=== PATIENT | female | born 1945 | race Caucasian/White ===

== ENCOUNTER → 2017-01-28 | Outpatient (CLI) | payer MEDICARE, BC | LOC: WC.BC 08:00 | DX: Z12.31 Encounter for screening mammogram for malignant neoplasm of breast (principal) | CPT/HCPCS: 77063; G0202 ==

== ENCOUNTER 2017-02-27 06:46 | Day surgery (SDC) | payer MEDICARE, BC ==
[~2017-02-27] VITALS: Ht 172.7 cm; Wt 75.7 kg
[~2017-02-27 06:46] MED LIST: AMLO1CAP11 PO; LOVA40TA2 PO; MULT-933 PO
--- OUTSIDE RECORDS SUMMARY | 2017-02-27 06:50 | XMS REPORT | Continuity of Care Document ---
Author Author [facility] Organization [facility] Address Unknown Phone Unavailable Allergies Medications Problems Procedures Results Encounters ACCT No. Visit Date/Time Discharge Status Pt. Type Provider Facility Loc./Unit Complaint [id number] 01/10/2014 08:02:00 01/10/2014 23 :59:59 CLS Outpatient
--- OUTSIDE RECORDS SUMMARY | 2017-02-27 06:51 | XMS REPORT | Referral Summary ---
Author Author [facility] Organization [facility] Address Unknown Phone Unavailable Care Team Providers Care Pharmacy Benefits Coordinator Name Role Phone Lynne Bills Primary Care Physician [phone] Encounter VC Date(s): 07/31/16 - 07/31/16 [facility] [address] [place] [id number]- Discharge Disposition: 01-Home or Self Care Attending Physician: Dean Bills MD Admitting Physician: Dean Bills MD Vital Signs No data available for this section Problem List Condition Effective Dates Status Health Status Informant Benign essential Active hypertension (disorder)(Confirmed ) Cataracts(Confirmed) Active Hyperlipidemia(Confi Active rmed) Hypertension(Confirm Active ed) Pure Active hypercholesterolemia (disorder)(Confirmed ) Allergies, Adverse Reactions, Alerts Substance Reaction Severity Status codeine EMISIS Active Medications amLODIPine-benazepril 5 mg-10 mg oral capsule See Instructions, TAKE ONE CAPSULE BY MOUTH ONCE DAILY, # 30 caps, 5 Refill(s), eRx: [id number], TAKE ONE CAPSULE BY MOUTH ONCE DAILY Start Date: 02/07/16 Status: Ordered aspirin 81 mg oral tablet 1 tabs, Oral, Daily, 0 Refill(s) Start Date: 07/12/14 Status: Ordered Colace 200 mg, Oral, Daily, 0 Refill(s) Start Date: 02/14/16 Status: Ordered lovastatin 40 mg oral tablet 40 mg 1 tabs, Oral, Daily, # 90 tabs, 4 Refill(s), Pharmacy: [facility], 1 tabs Oral Daily Start Date: 08/24/15 Status: Ordered meloxicam 7.5 mg oral tablet 7.5 mg 1 tabs, Oral, BID, Pain, # 60 tabs, 0 Refill(s), Pharmacy: [facility], 1 tabs Oral BID,PRN:Pain Start Date: 07/12/15 Status: Ordered Vitamin C 500 mg oral tablet 1 tabs, Oral, Daily, 0 Refill(s) Start Date: 07/12/14 Status: Ordered vitamin E 400 intl units oral capsule 1 caps, Oral, Daily, 0 Refill(s) Start Date: 07/12/14 Status: Ordered Results No data available for this section Immunizations Vaccine Date Refusal Reason influenza virus vaccine, inactivated 07/31/16 influenza virus vaccine, inactivated1 08/03/14 influenza virus vaccine, live 07/09/13 influenza virus vaccine, live 07/07/12 pneumococcal 13-valent conjugate vaccine2 07/12/15 pneumococcal 23-polyvalent vaccine 07/07/09 1Location History: See Scanned Document 2Early/Late Reason: Nursing Judgment Procedures Procedure Date Related Diagnosis Body Site Mammogram 01/26/13 Cataract Left 2008 Colonoscopy1 2007 Hysterectomy 1992 1Normal Social History Social History Type Response Smoking Status Never smoker Assessment and Plan No data available for this section
--- OUTSIDE RECORDS SUMMARY | 2017-02-27 06:51 | XMS REPORT | Referral Summary ---
Author Author [facility] Organization [facility] Address Unknown Phone Unavailable Care Team Providers Care Bracelet Maker Novelty Name Role Phone Lynne Bills Primary Care Physician [phone] Encounter Date(s): 02/14/16 - 02/14/16 [facility] [address] [place] [id number]- Discharge Diagnosis: Constipation Discharge Diagnosis: Pain in left hip Discharge Disposition: 01-Home or Self Care Attending Physician: Dean Bills MD Admitting Physician: Dean Bills MD Vital Signs Most recent to 1 oldest [Reference Range]: Temperature Tympanic 36.7 degC [36.6-38.1 degC] (02/14/16 9:57 AM) Peripheral Pulse 92 bpm Rate [60-100 bpm] (02/14/16 9:57 AM) Respiratory Rate 18 br/min [14-20 br/min] (02/14/16 9:57 AM) Blood Pressure 104/76 mmHg [90-140/60-90 mmHg] (02/14/16 9:57 AM) Problem List Condition Effective Dates Status Health Status Informant Benign essential Active hypertension (disorder)(Confirmed ) Cataracts(Confirmed) Active Hyperlipidemia(Confi Active rmed) Hypertension(Confirm Active ed) Pure Active hypercholesterolemia (disorder)(Confirmed ) Allergies, Adverse Reactions, Alerts Substance Reaction Severity Status codeine EMISIS Active Medications amLODIPine-benazepril 5 mg-10 mg oral capsule See Instructions, TAKE ONE CAPSULE BY MOUTH ONCE DAILY, # 30 caps, 5 Refill(s), [facility], TAKE ONE CAPSULE BY MOUTH ONCE DAILY Start Date: 02/07/16 Status: Ordered aspirin 81 mg oral tablet 1 tabs, Oral, Daily, 0 Refill(s) Start Date: 07/12/14 Status: Ordered Colace 200 mg, Oral, Daily, 0 Refill(s) Start Date: 02/14/16 Status: Ordered lovastatin 40 mg oral tablet 40 mg 1 tabs, Oral, Daily, # 90 tabs, 4 Refill(s), Pharmacy: [facility], 1 tabs Oral Daily Start Date: 08/24/15 Status: Ordered meloxicam 7.5 mg oral tablet 7.5 mg 1 tabs, Oral, BID, Pain, # 60 tabs, 0 Refill(s), Pharmacy: [facility], 1 tabs Oral BID,PRN:Pain Start Date: 07/12/15 Status: Ordered Vitamin C 500 mg oral tablet 1 tabs, Oral, Daily, 0 Refill(s) Start Date: 07/12/14 Status: Ordered vitamin E 400 intl units oral capsule 1 caps, Oral, Daily, 0 Refill(s) Start Date: 07/12/14 Status: Ordered Results No data available for this section Immunizations Vaccine Date Refusal Reason influenza virus vaccine, inactivated1 08/03/14 influenza virus vaccine, live 07/09/13 influenza virus vaccine, live 07/07/12 pneumococcal 13-valent conjugate vaccine2 07/12/15 pneumococcal 23-polyvalent vaccine 07/07/09 1Location History: See Scanned Document 2Early/Late Reason: Nursing Judgment Procedures Procedure Date Related Diagnosis Body Site Mammogram 01/26/13 Cataract Left 2007 Colonoscopy1 2007 Hysterectomy 1992 1Normal Social History Social History Type Response Smoking Status Never smoker Assessment and Plan Extracted from: Title: Office Visit Note Author: Dean Bills MD Date: 02/14/16 Assessment/Plan Constipation Continue stool softener no MiraLAX as needed. Continue to work on increasing fiber in the diet with fresh fruits patient goals and will drains. We discussed colonoscopy and considereddoing it next yearunless symptoms persist or worsen. Ordered: Office Visit Level 3 Est 90193 Pain in left hip Intermittent ibuprofen usage is fine. We will do an x- ray today. She really not interested in being any more aggressive with treatmentunless it becomes more bothersome. Ordered: Office Visit Level 3 Est 97778 XR Hip/Femur Left
--- OUTSIDE RECORDS SUMMARY | 2017-02-27 06:51 | XMS REPORT | Referral Summary ---
Author Author [facility] Organization [facility] Address Unknown Phone Unavailable Care Team Providers Care Silk Screen Operator Name Role Phone Lynne Bills Primary Care Physician [phone] Encounter VC Date(s): 05/17/15 - 05/17/15 [facility] [address] [place] [address]- Discharge Diagnosis: Left foot pain Discharge Diagnosis: Closed fracture of fifth metatarsal bone Discharge Disposition: 01-Home or Self Care Attending Physician: Dean Bills MD Admitting Physician: Dean Bills MD Vital Signs Most recent to 1 oldest [Reference Range]: Temperature Tympanic 36.8 degC [36.6-38.1 degC] (05/17/15 10:44 AM) Peripheral Pulse 76 bpm Rate [60-100 bpm] (05/17/15 10:44 AM) Respiratory Rate 16 br/min [14-20 br/min] (05/17/15 10:44 AM) Blood Pressure 110/70 mmHg [90-140/60-90 mmHg] (05/17/15 10:44 AM) Problem List Condition Effective Dates Status Health Status Informant Benign essential Active hypertension (disorder)(Confirmed ) Cataracts(Confirmed) Active Hyperlipidemia(Confi Active rmed) Hypertension(Confirm Active ed) Pure Active hypercholesterolemia (disorder)(Confirmed ) Allergies, Adverse Reactions, Alerts Substance Reaction Severity Status codeine EMISIS Active Medications amLODIPine-benazepril 5 mg-10 mg oral capsule 1 caps, Oral, Daily, # 90 caps, 4 Refill(s), Pharmacy: [facility] Start Date: 08/24/15 Status: Ordered aspirin 81 mg oral tablet 1 tabs, Oral, Daily, 0 Refill(s) Start Date: 07/12/14 Status: Ordered lovastatin 40 mg oral tablet 40 mg 1 tabs, Oral, Daily, # 90 tabs, 4 Refill(s), Pharmacy: [facility], 1 tabs Oral Daily Start Date: 08/24/15 Status: Ordered meloxicam 7.5 mg oral tablet 7.5 mg 1 tabs, Oral, BID, Pain, # 60 tabs, 0 Refill(s), Pharmacy: [facility], 1 tabs Oral BID,PRN:Pain [...] Visit Note Author: Dean Bills MD Date: 05/17/15 Assessment/Plan Closed fracture of fifth metatarsal bone My interpretation of the x-ray is shows good healing of the fracture. There is some arthritic change around this joint.. I recommended putting her on some meloxicam 50 mg daily for a couple weeks it's doing. She is to take this with food and not use any ibuprofen or Aleve while taking area it's not improving may consider orthopedic consultation. If the radiologist interprets the x-ray department Ordered: Office Visit Level 3 Est 52129 Left foot pain See above plan. Ordered: Office Visit Level 3 Est 91234 Orders: meloxicam, 15 mg 1 tabs, Oral, Daily, # 30 tabs, 0 Refill(s), Pharmacy : [facility], 1 tabs Oral Daily
--- OUTSIDE RECORDS SUMMARY | 2017-02-27 06:51 | XMS REPORT | Referral Summary ---
Author Author [facility] Organization [facility] Address Unknown Phone Unavailable Care Team Providers Care Websphere Consultant Name Role Phone Lynne Bills Primary Care Physician [phone] Encounter VC Date(s): 07/12/15 - 07/12/15 [facility] [address] [place] [id number] Discharge Diagnosis: Benign essential hypertension Discharge Diagnosis: Hyperlipidemia Discharge Diagnosis: Foot pain Discharge Disposition: 01-Home or Self Care Attending Physician: Dean Bills MD Admitting Physician: Dean Bills MD Vital Signs Most recent to 1 oldest [Reference Range]: Temperature Tympanic 36.6 degC [36.6-38.1 degC] (07/12/15 9:39 AM) Peripheral Pulse 72 bpm Rate [60-100 bpm] (07/12/15 9:39 AM) Blood Pressure 100/60 mmHg [90-140/60-90 mmHg] (07/12/15 9:39 AM) Problem List Condition Effective Dates Status Health Status Informant Benign essential Active hypertension (disorder)(Confirmed ) Cataracts(Confirmed) Active Hyperlipidemia(Confi Active rmed) Hypertension(Confirm Active ed) Pure Active hypercholesterolemia (disorder)(Confirmed ) Allergies, Adverse Reactions, Alerts Substance Reaction Severity Status codeine EMISIS Active Medications amLODIPine-benazepril 5 mg-10 mg oral capsule 1 caps, Oral, Daily, # 90 caps, 4 Refill(s), Pharmacy: [facility] Start Date: 08/24/15 Status: Ordered aspirin 81 mg oral tablet 1 tabs, Oral, Daily, 0 Refill(s) Start Date: 07/12/14 Status: Ordered lovastatin 40 mg oral tablet 40 mg 1 tabs, Oral, Daily, # 90 tabs, 4 Refill(s), Pharmacy: [facility], 1 tabs Oral Daily Start Date: 08/24/15 Status: Ordered meloxicam 7.5 mg oral tablet 7.5 mg 1 tabs, Oral, BID, Pain, # 60 tabs, 0 Refill(s), Pharmacy: [facility], 1 tabs Oral BID,PRN:Pain Start [...] 01/26/13 Cataract Left 2007 Colonoscopy1 2007 Hysterectomy 1991 1Normal Social History Social History Type Response Smoking Status Never smoker Assessment and Plan Extracted from: Title: Office Visit Note Author: Dean Bills MD Date: 07/12/15 Assessment/Plan Benign essential hypertension Blood pressures adequately controlled. No change in current treatment plan recommended. He did recommend and give Prevnar today. Yearly follow-up encouraged. Ordered: pneumococcal 13-valent conjugate vaccine, 0.5 mL, IntraMuscular, Once, First Dose: 07/12/15 10:00:00 CDT, Stop Date: 07/12/15 10:00:00 CDT, Form: Injection Office Visit Level 3 Est 59744 Foot pain, PAIN IN LIMB Refilled meloxicam to use when necessary. If the pain worsens or she is having further trouble she'll let us know. Ordered: Office Visit Level 3 Est 12544 Hyperlipidemia Recent laboratory studies reviewed. No change in current treatment. Refills on lovastatin provided. Yearly follow-up recommended. Ordered: Office Visit Level 3 Est 77901 Orders: lovastatin, See Instructions, TAKE ONE TABLET BY MOUTH ONCE DAILY, # 30 tabs, 12 Refill(s), Pharmacy: [facility], TAKE ONE TABLET BY MOUTH ONCE DAILY meloxicam, 7.5 mg 1 tabs, Oral, BID, Pain, # 60 tabs, 0 Refill(s), Pharmacy: [facility], 1 tabs Oral BID,PRN:Pain
--- OUTSIDE RECORDS SUMMARY | 2017-02-27 06:51 | XMS REPORT | Continuity of Care Document ---
Author Author Dean Bills MD [facility] Address [address] [facility] [place] [address] Phone Care Team Providers Care Enrollment Consultant Name Role Phone Dean Bills PP Unavailable Payers Payer name Insurance type Covered alliance party ID Authorization(s) Unknown Problems Condition Effective Dates (start - stop) Clinical Status Hypertension, Benign - *Chronic Hypercholesterolemia - *Chronic Osteoarthritis of neck - *Chronic Hypertension, Benign - *Chronic Hypercholesterolemia - *Chronic Influenza Vaccine - Hypertension, Benign - *Controlled Other and unspecified hyperlipidemia - *Chronic Hypertension, Benign - *Chronic Hypercholesterolemia - *Chronic Hypertension, Benign - Chronic Hypercholesterolemia - Chronic Upper Respiratory Infection, Acute - *Acute Bronchitis, Acute - *Acute PURE HYPERCHOLESTEROLEM - CATARACT NOS - BENIGN HYPERTENSION - Upper Respiratory Infection, Acute - *Acute Allergic rhinitis, cause unspecified - *Acute Pneumonia - *Acute Family History Family Member Diagnosis Age At Onset Status Mother (Unknown) Cancer - leukemia Yes Father (Unknown) Heart disease Yes Father (Unknown) Hypertension Yes Sister (Unknown) Cancer - renal Yes Social History Social History Element Description Quantity alcohol 2 drinks Allergies, Adverse Reactions, Alerts Substance Reaction Severity Status CODEINE PHOSPHATE EMISIS Unknown Medications Medication Instructions Dosage Effective Dates (start - stop) Status aspirin 81 mg chewable tablet chew 1 tablet (81MG) by oral route every day 81 MG - Active take 1 by Oral route every day 0 - Active Vitamin C 500 mg tablet take 1 Tablet by Oral route every day 0 2010 - Active amlodipine 5 mg-benazepril 10 mg capsule Take 1 by mouth every day. - Active lovastatin 40 mg tablet Take 1 by mouth every day. - Active Immunizations Vaccine Date Status Comments Flu (split) (3 yrs or older) completed pneumo (2 yrs or older) (PPV23) completed - Completed reason: parent's recall Flu (split) (3 yrs or older) completed Results Test Name Date and Time Measure Units Reference Range Abnormal Flag Comments Unknown Vital Signs Date / Time: Height Weight Pulse Rate Blood Pressure Temperature /08:11:00 68.67 in 173.00 lbs 80 /min 124/76 mm[Hg] 97.5 F Procedures Procedure Date Unknown Encounters Encounter Location Date Patient Visit [facility] Patient Visit [facility] Patient Visit [facility] Patient Visit [facility] Patient Visit [facility] Patient Visit [facility] Patient Visit [facility] Patient Visit [facility] Patient Visit [facility] Patient Visit [facility] Patient Visit [facility] Advance Directives Directive Effective Date Unknown
--- OUTSIDE RECORDS SUMMARY | 2017-02-27 06:51 | XMS REPORT | Referral Summary ---
Author Organization Unknown Address Unknown Phone Unavailable Care Team Providers Care Maintenance Worker Swimming Pool Name Role Phone Lynne Bills Primary Care Physician [phone] Encounter VC Date(s): 12/26/14 - 12/26/14 [facility] [address] [place] [address] Discharge Diagnosis: Fractured metatarsal Discharge Diagnosis: Fractured metatarsal Discharge Disposition: Home or Self Care Attending Physician: Dean Bills MD Admitting Physician: Dean Bills MD Vital Signs Most recent to 1 oldest [Reference Range]: Temperature Tympanic 36.1 degC [36.6-38.1 degC] *LOW* (12/26/14 8:39 AM) Peripheral Pulse 76 bpm Rate [60-100 bpm] (12/26/14 8:39 AM) Respiratory Rate 16 br/min [14-20 br/min] (12/26/14 8:39 AM) Blood Pressure 110/76 mmHg [90-140/60-90 mmHg] (12/26/14 8:39 AM) Problem List Condition Effective Dates Status Health Status Informant Benign essential Active hypertension (disorder)(Confirmed ) Cataracts(Confirmed) Active Hyperlipidemia(Confi Active rmed) Hypertension(Confirm Active ed) Pure Active hypercholesterolemia (disorder)(Confirmed ) Allergies, Adverse Reactions, Alerts Substance Reaction Severity Status codeine EMISIS Active Medications amLODIPine-benazepril 5 mg-10 mg oral capsule See Instructions, TAKE ONE CAPSULE BY MOUTH ONCE DAILY, # 30 caps, 2 Refill(s), eRx: [id number], TAKE ONE CAPSULE BY MOUTH ONCE DAILY Special Instructions: TAKE ONE CAPSULE BY MOUTH ONCE DAILY Start Date: 11/04/14 Status: Ordered aspirin 81 mg oral tablet 1 tabs, Oral, Daily, 0 Refill(s) Start Date: 07/12/14 Status: Ordered lovastatin 40 mg oral tablet See Instructions, TAKE ONE TABLET BY MOUTH EVERY DAY, # 30 tabs, 3 Refill(s), eRx: [facility], TAKE ONE TABLET BY MOUTH EVERY DAY Special Instructions: TAKE ONE TABLET BY MOUTH EVERY DAY Start Date: 09/09/14 Status: Ordered Vitamin C 500 mg oral [...] 07/09/13 influenza virus vaccine, live 07/07/12 pneumococcal 23-polyvalent vaccine 07/07/09 1Location History: See Scanned Document Procedures Procedure Date Related Diagnosis Body Site Cataract Left 2007 Colonoscopy1 2007 Hysterectomy 1991 1Normal Social History Social History Type Response Smoking Status Never smoker Assessment and Plan Extracted from: Title: Ambulatory Patient Education Author: Dean Bills MD Date: Family Medicine Metatarsal Stress Fracture A stress fracture is a break in a bone of the body that is caused by repeated stress (trauma ) that slowly weakens the bone until it eventually breaks. The metatarsal bones are in the middle of the feet, connecting the toes to the ankle. They are vulnerable to stress fractures. Metatarsal stress fractures are the second most common type of stress fracture in athletes. The metatarsal of the pointer toe (second metatarsal ) is the most common metatarsal to suffer a stress fracture. SYMPTOMS Vague, spread out pain or ache. Sometimes, tenderness and swelling in the foot. Uncommonly, bleeding and bruising in the foot. Weakness and inability to bear weight on the injured foot. Paleness and deformity (sometimes). CAUSES A stress fracture is caused by repeated trauma. This slowly weakens the bone, faster than it can heal itself, until the bone breaks. Stress fractures often follow a sudden change in training schedule. Stress fractures may be related to the loss of menstrual period in women. RISK INCREASES WITH: Previous stress fracture. Sudden changes in training intensity, frequency, or duration ( recruits, distance runners). Bony abnormalities (osteoporosis, tumors). Metabolism disorders or hormone problems. Nutrition deficiencies or eating disorders (anorexia or bulimia). The loss of or irregular menstrual periods in women. Poor strength and flexibility. Running on hard surfaces. Poor leg and foot alignment. This includes flat feet. Poor footwear with poor shock absorbers. Poor running technique. PREVENTION Warm up and stretch properly before activity. Maintain physical fitness: Muscle strength. Endurance and flexibility. Wear proper and correctly fitted footwear. Replace shoes after 300 to 500 miles of running. Learn and use proper technique with training and activity. Increase activity and training gradually. Treat hormonal disorders. control pills can be helpful for women with menstrual period irregularity. Correct metabolism and nutrition disorders. Wear cushioned arch supports for runners with flat feet. PROGNOSIS With proper treatment, stress fractures usually heal within 6 to 12 weeks. RELATED COMPLICATIONS Failure to heal (nonunion ), especially with stress fractures of the outer foot (upper part of the fifth metatarsal). Healing in a poor position (malunion ). Recurring stress fracture. Progression to a complete or displaced fracture. Risks of surgery: infection, bleeding, injury to nerves (numbness, weakness , paralysis), and need for further surgery. Repeated stress fracture, not necessarily at the same site. (Occurs in 1 of every 10 patients). TREATMENT Treatment first involves ice and medicine to reduce pain and inflammation. You must rest from any aggravating activity, to avoid making the fracture worse. For severe stress fractures, crutches may be advised, to take weight off the injured foot. Depending on your caregiver's instructions, you may be permitted to perform activities that do not cause pain. Any menstrual, hormonal, or nutritional problems must be addressed and treated. Return to activity must be performed gradually, to avoid reinjuring the foot. Physical therapy may be advised, to help strengthen the foot and regain full function. On rare occasions , surgery is needed. This may be offered if non-surgical treatment is ineffective after 3 to 6 months. MEDICATION If pain medicine is needed, nonsteroidal anti-inflammatory medicines ( NSAIDS) or other minor pain relievers are often advised. Do not take pain medicine for 7 days before surgery. Only take [id number] or prescription medicines for pain, discomfort, or fever as directed by your caregiver. SEEK IMMEDIATE MEDICAL CARE IF: Symptoms get worse or do not improve in 2 weeks, despite treatment. The following occur after immobilization or surgery: Swelling above or below the fracture site. Severe, persistent pain. Blue or cabrera skin below the fracture site, especially under the toenails. Numbness or loss of feeling below the fracture site. New, unexplained symptoms develop. (Drugs used in treatment may produce side effects .) Document Released: 10/13/2006 Document Revised: 01/04/2013 Document Reviewed: [employer] Patient Information 2014 2houses. No follow up information was provided. Extracted from: Title: Office Visit Note Author: Dean Bills MD Date: 12/26/14 Assessment/Plan Fractured metatarsal, Fractured metatarsal Overall the fracture appears to be doing fine. I told her she needs to be in the boot for another 4 weeks recheck fracture at that time with an x-ray. Call with problems questions or concerns sooner.
--- OUTSIDE RECORDS SUMMARY | 2017-02-27 06:51 | XMS REPORT | Referral Summary ---
Author Organization Unknown Address Unknown Phone Unavailable Care Team Providers Care Hospitalist Medical Director Name Role Phone Lynne Bills Primary Care Physician [phone] Encounter VC Date(s): 12/09/14 - 12/09/14 Via KIMBERLY Peralta, [place], Family [address] [place] [id number] Discharge Diagnosis: Left foot pain Discharge Diagnosis: Closed fracture of fifth metatarsal bone Discharge Disposition: Home or Self Care Attending Physician: Dean Bills MD Admitting Physician: Dean Bills MD Vital Signs Most recent to 1 oldest [Reference Range]: Temperature Tympanic 36 degC [36.6-38.1 degC] *LOW* (12/09/14 8:34 AM) Peripheral Pulse 80 bpm Rate [60-100 bpm] (12/09/14 8:34 AM) Respiratory Rate 14 br/min [14-20 br/min] (12/09/14 8:34 AM) Blood Pressure 120/80 mmHg [90-140/60-90 mmHg] (12/09/14 8:34 AM) Problem List Condition Effective Dates Status Health Status Informant Benign essential Active hypertension (disorder)(Confirmed ) Cataracts(Confirmed) Active Hyperlipidemia(Confi Active rmed) Hypertension(Confirm Active ed) Pure Active hypercholesterolemia (disorder)(Confirmed ) Allergies, Adverse Reactions, Alerts Substance Reaction Severity Status codeine EMISIS Active Medications amLODIPine-benazepril 5 mg-10 mg oral capsule See Instructions, TAKE ONE CAPSULE BY MOUTH ONCE DAILY, # 30 caps, 2 Refill(s), eRx: [id number], TAKE ONE CAPSULE BY MOUTH ONCE DAILY Special Instructions: TAKE ONE CAPSULE BY MOUTH ONCE DAILY Start Date: 11/04/14 Status: Ordered aspirin 81 mg oral tablet 1 tabs, Oral, Daily, 0 Refill(s) Start Date: 07/12/14 Status: Ordered lovastatin 40 mg oral tablet See Instructions, TAKE ONE TABLET BY MOUTH EVERY DAY, # 30 tabs, 3 Refill(s), eRx: [id number], TAKE ONE TABLET BY MOUTH [...] Site Cataract Left 2007 Colonoscopy1 2007 Hysterectomy 1992 1Normal Social History Social History Type Response Smoking Status Never smoker Assessment and Plan Extracted from: Title: Ambulatory Patient Education Author: Dean Bills MD Date: Orthopedics Avulsion Fracture You have an avulsion fracture. Avulsion fractures are chips of bone pulled off by muscle tendons or ligaments. Common avulsion fractures are on the hand and foot. Avulsion fractures can also involve the elbow, knee, hip, and pelvis. The diagnosis is usually made by X-ray or ultrasound exam. These fractures may cause a deformity if the growth plate of the bone is involved in growing children. A growth plate is an area near the end of the bone where the bone grows from. Avulsion fractures can take several weeks to heal. They need long-term protection and follow-up. Do not remove the splint, immobilizer, or cast that has been applied to treat your injury unless instructed to do so. This is the most important part of your treatment. Other measures for treating avulsion fractures may include: Keeping the injured limb at rest and elevated as recommended by your caregiver. This reduces pain and swelling. Use pillows to rest and elevate your arm or leg at night. Ice packs applied to your injury every 20 minutes while awake for the next 2 days or as directed. Pain medications. Avulsion fractures near joints may require rehabilitation. Rarely an avulsion fracture needs surgery to hold pieces together. Proper follow-up care is important. Call your caregiver for a follow-up appointment. SEEK IMMEDIATE MEDICAL CARE IF: You notice increasing pain or pressure in the injury. The area becomes cold, numb, or pale. Document Released: 11/20/2005 Document Revised: 01/04/2013 Document Reviewed: ExitCare Patient Information 2014 [facility]. No follow up information was provided. Extracted from: Title: Office Visit Note Author: Dean Bills MD Date: 12/09/14 Assessment/Plan Closed fracture of fifth metatarsal bone It looks like she has nondisplaced fracture of the base of her fifth metatarsal. I recommended a Cam Walker recheck x-ray in 2 weeks. She may remove the walker to take a bath or shower and does not need to wear it at night. If she has further problems or concerns she'll let us know. Left foot pain Ordered: XR Foot Complete Left
[2017-02-27] MEDS ORDERED: LR 1,000 ML IV SCH (07:00)
[2017-02-27] MEDS ORDERED: LIDOCAINE 1% (10mg/ml) 2ml SDV INJ ONE (07:00)
[2017-02-27 07:10] VITALS: Ht 172.7 cm; Wt 75.7 kg
[2017-02-27 07:13] VITALS: BP 127/76; PULSE 103; RESP 16; TEMP 98.4; O2SAT 92
--- NOTE | 2017-02-27 07:30 | ANESPREOP ---
Anesthesia Record Date and Time DATE: 02/27/17 TIME: 07:28 Pre-Op Diagnosis Screening Proposed Surgical Procedure COLONOSCOPY NPO since: Midnight Allergies: Coded Allergies: codeine (Verified Adverse Reaction, Unknown, NAUSEA, 02/27/17) Ht/Wt/BMI Height: 5 ' 8.00 " Weight: 75.700 kg BMI: 25.4 kg/m2 Vital Signs Date Time Temp Pulse Resp B/P Pulse Ox O2 Delivery O2 Flow Rate FiO2 02/27/17 07:13 98.4 103 16 127/76 92 Room Air Medications Inpatient Medications Current Medications Medications (Trade) Dose Ordered Sig/George Start Time Stop Time Status Last Admin Dose Admin Lactated Ringer's (Lactated Ringers) 1,000 ml @ 30 mls/hr Q24H 02/27/17 07:00 Amlodipine Besylate/Benazepril (Amlodipine-Benazepril 5-10 mg) 1 Each Capsule, 1 CAP PO DAILY, (Reported) Last Taken: on 02/27/17 0600 Lovastatin (Lovastatin) 40 Mg Tablet, 1 TAB PO DAILY, (Reported) Last Taken: on 02/27/17 0600 Multivitamin (Multi-Day Vitamins) 1 Each Tablet , 1 TAB PO DAILY, (Reported) Last Taken: on 02/20/17 0800 Currently on Beta Ferny: No Medical/Surgical History Anesthesia PMH: Reports: *Hypertension, Hyperlipidemia, Denies: *Diabetes, Anesthesia Reactions (NO AIRWAY ISSUES), Arthritis, Cancer, Clotting Problems, Glaucoma, Malignant Hyperthermia, Renal Disease, Sleep Apnea, Thyroid Disease Smoking Status: Never smoker Has pt. smoked today?: No Use Chewing Tobacco?: No Second Hand Exposure: No Substance Use Type: does not use Alcohol Intake: none HX of Last Menstrual Period: AGE 47 Past Surgical History Orthopedic Surgeries: Abdominal Surgeries: Genitourinary Surgeries: Cardiac Surgeries: Endocrine Surgeries: Reproductive Surgeries: Yes - HYSTERECTOMY Neurological Surgeries: Ear Surgeries: Nose Surgeries: Throat Surgeries: Other Surgeries: Yes - COLONOSCOPY Anesthesia Adverse Reactions: FOUND none Family Hx of Anesthesia Advers: none Pertinent Findings EKG Rhythm: Sinus Rhythm Physical Exam Respiratory: Lungs clear Cardiovascular: FOUND Regular rate, rhythm Airway Assessment Mallampati Score: II TMD: 3 Fingerbreadths Neck Extension: Fair Overall Assessment: No Airway Concerns ASA: 2 Plan Anesthesia Plan: TIVA Discussion Discussed risks/options/alternatives of anesthesia and questions answered. Patient consents. Nursing pain assessment noted. Attestation Statement Prior to the delivery of any anesthetic medication, I examined the patient, developed the plan, obtained the patient's consent and discussed the risk and benefits of the procedure with the patient/guardian. JUAN CARLOS GARY COMPUTER PROGRAMMING MANAGER February 27, 2017 07:29
[2017-02-27 10:03] VITALS: BP 93/57; PULSE 90; RESP 18; TEMP 97; O2SAT 98
[2017-02-27 10:18] VITALS: BP 111/76; PULSE 99; RESP 20; O2SAT 94
[2017-02-27 10:33] VITALS: BP 116/73; PULSE 89; RESP 20; O2SAT 94
--- NOTE | 2017-02-27 10:35 | ANESPO ---
Post-Op Note Date 02/27/17 Time: 10:12 Status Pt Participated in Evaluation: Pt participated in person Vital Signs Date Time Temp Pulse Resp B/P Pulse Ox O2 Delivery O2 Flow Rate FiO2 02/27/17 10:03 97.0 90 18 93/57 98 Mask 6.00 Respiratory Function: Airway patent Cardiovascular Function: Regular pulse Telemetry Pattern: ST Mental Status: Alert/oriented Pain Level Intensity: 0 Hydration: Taking po fluids Complications during Recovery None apparent Follow-Up Instructions Instructions Per Surgeon Additional Information I spoke to patient and her in the SCU. I informed them of her bradycardic episode during her procedure. I asked if she has had episodes of dizziness or fainting recently or in the past and she had denied both. I expressed that at this time I didn't have concerns except for vagal response, and to let her primary doctor know if she had experienced symptoms. JUAN CARLOS GARY EMERGENCY MANAGEMENT SYSTEM DIRECTOR February 27, 2017 10:34
--- NOTE | 2017-02-27 19:10 | OPNOTEF ---
DATE OF SERVICE 02/27/2017 SURGEON Chi Pendleton MD PREOPERATIVE DIAGNOSIS Colorectal cancer surveillance. POSTOPERATIVE DIAGNOSES Colorectal cancer surveillance, polyps x 3 within rectal vault, sigmoid diverticulosis. PROCEDURE Colonoscopy with polypectomies via cold biopsy technique. ANESTHESIA TIVA BRIEF HISTORY/INDICATIONS Mrs. Sotomayor is a 71-year-old female who presents today to [facility] to undergo a colonoscopy to serve as a portion of her overall colorectal cancer surveillance. For completeness please refer to notes included in the patient's chart. FINDINGS Upon colonoscopy the patient was found to have three diminutive-appearing colonic polyps within the rectal vault that appeared to be hyperplastic in nature and on the order of 5 mm in diameter. These polyps, nonetheless, were removed in their entirety via cold biopsy technique. The patient was found to have a moderate number of diverticula within the sigmoid colon region. There was no evidence for angiodysplastic lesions or ghada malignancies. DESCRIPTION OF PROCEDURE After informed consent was obtained the patient was brought to the endoscopy suite and placed on the table in left lateral decubitus position. Patient subsequently underwent total intravenous anesthesia by the nurse residential mortgage manager at my request. Formal timeout was then completed. Next, a digital rectal exam was performed. Normal sphincter tone. No rectal masses were appreciated. An Olympus colonoscope was inserted into the anus and advanced through the lumen of the colon under direct visualization at all times until the cecum was ascertained. Triangulation of the tenia coli, ileocecal valve and appendiceal lumen were all visualized. The scope was slowly withdrawn, maintaining visualization of the lumen at all times. As stated above, the entire colon was without evidence for angiodysplastic lesions nor ghada malignancies. She was found to have a moderate number of diverticula within the sigmoid colon region. Once the colonoscope was withdrawn back to the rectal vault one could see three separate diminutive-appearing colonic polyps that appeared to be hyperplastic in nature, as discussed above. These polyps, nonetheless, were grasped and removed in their entirety via cold biopsy technique and submitted for pathologic evaluation. J-maneuver was performed. No worrisome perianal pathology was noted. Scope was allowed to straighten and was withdrawn through the anal verge. Patient tolerated the procedure without difficulty and was sent back to the preop area in stable condition. Await biopsy results today's polypectomies and proceed accordingly with further recommendations thereafter. [facility]
== END 2017-02-27 10:39 | disposition home or self-care (01) ==
LOC: SCU 06:46
PROVIDERS: ATTEND Surgery
DX: Z12.11 Encounter for screening for malignant neoplasm of colon (principal); K62.1 Rectal polyp; K57.30 Diverticulosis of large intestine without perforation or abscess without bleeding; I10 Essential (primary) hypertension; E78.5 Hyperlipidemia, unspecified; Z79.899 Other long term (current) drug therapy; Z79.82 Long term (current) use of aspirin; Z88.5 Allergy status to narcotic agent; Z90.710 Acquired absence of both cervix and uterus
CPT/HCPCS: 45380; 88305; J7120